=== PATIENT | female | born 1985 | race Hispanic/Latino ===

== ENCOUNTER 2019-03-26 09:55 | Outpatient (CLI) | payer OTHER ==
--- NOTE | 2019-03-26 10:40 | MMO ---
Bilateral MAMMO [facility]at [facility]. CLINICAL HISTORY: Patient is 34 years old and is seen for diagnostic exam. The patient has the following family history of breast cancer: paternal grandmother, at age 50. The patient has no personal history of cancer. VIEWS: The views performed were: bilateral craniocaudal with tomosynthesis; bilateral mediolateral oblique with tomosynthesis; and bilateral mediolateral. FILMS COMPARED: The present examination has been compared to a prior imaging study performed at [facility] on 03/26/2019. MAMMOGRAM FINDINGS: The breasts are heterogeneously dense, which could obscure a lesion on mammography. There are no suspicious masses, suspicious calcifications, or new areas of architectural distortion. IMPRESSION: THERE IS NO MAMMOGRAPHIC EVIDENCE OF MALIGNANCY. A ROUTINE FOLLOW-UP MAMMOGRAM AT AGE 39 IS RECOMMENDED. THE RESULTS OF THIS EXAM WERE SENT TO THE PATIENT. ACR BI-RADS Category 1 - Negative MAMMOGRAPHY NOTE: 1. A negative mammogram report should not delay a biopsy if a dominant of clinically suspicious mass is present. 2. Approximately 10% to 15% of breast cancers are not detected by mammography. 3. Adenosis and dense breasts may obscure an underlying neoplasm.
--- NOTE | 2019-03-26 12:22 | ULT ---
LEFT BREAST ULTRASOUND: Date: 03/26/19 HISTORY: Palpable mass in the upper outer aspect of the left breast and pain. TECHNIQUE: Multiplanar Monae scale and color Doppler images obtained in a left breast ultrasound. FINDINGS: The normal appearing breast parenchyma is seen at the area of palpable abnormality. No cyst is seen. No suspicious mass or shadowing is seen. IMPRESSION: BI-RADS Category 1 - Negative. Annual screening mammography is recommended at the age of 40. POS: [facility]
== END 2019-03-26 09:56 | disposition home or self-care (01) ==
LOC: BICMAMMO 09:55
PROVIDERS: ATTEND Student in an Organized Health Care Education/Training Program
DX: N63.20 Unspecified lump in the left breast, unspecified quadrant (principal); Z80.3 Family history of malignant neoplasm of breast
CPT/HCPCS: 77066; G0279